=== PATIENT | male | born 1990 | race Two or more races ===

== ENCOUNTER 2021-04-09 14:26 | Emergency (ER) | payer MEDICAID, OTHER ==
[~2021-04-09] VITALS: Ht 170.2 cm; Wt 70.3 kg
[2021-04-09] MEDS ORDERED: cefTRIAXone 1GM/50ML D5W 50 ML IV ONE (15:00)
[2021-04-09] MEDS ORDERED: SODIUM CHLORIDE 0.9% 1,000 ML IV ONE ×2 (15:00)
[2021-04-09] MEDS ORDERED: LIDOCAINE 1% HCL (LOCAL ANESTH.) INJ 20ML MDV ONE (16:57)
[2021-04-09] MEDS ORDERED: LIDOCAINE HCL 100 MG/5ML (2%) SYRG INJ IV ONE (17:15)
[2021-04-09] MEDS ORDERED: MORPHINE SULFATE 4 MG/ML SYR/VIAL ONE (17:26)
[2021-04-09] MEDS ORDERED: MORPHINE SULFATE 4 MG/ML SYR/VIAL IV ONE ×2 (17:30→17:45)
[2021-04-09 18:11] VITALS: BP 122/73
== END 2021-04-09 18:25 | disposition home or self-care (01) ==
LOC: ER 14:26 → EDBD 14:26 → ER 18:25
DX: S51.811A Laceration without foreign body of right forearm, initial encounter (principal); S71.112A Laceration without foreign body, left thigh, initial encounter; S09.8XXA Other specified injuries of head, initial encounter; Y08.89XA Assault by other specified means, initial encounter; Y93.89 Activity, other specified; Y92.89 Other specified places as the place of occurrence of the external cause; Y99.8 Other external cause status
CPT/HCPCS: 12004; 70450; 70486; 73700; 96361; 96365; 96375; 99285; J0696; J2001; J2270; J7030